=== PATIENT | male | born 1965 | race Hispanic/Latino ===

== ENCOUNTER → 2024-10-07 | Day surgery (SDC) | payer OTHER ==
[2024-10-03 12:25] LABS: BASOPHILS % 0.7 % (0.0-1.0); EOSINOPHILS % 2.4 % (0.0-6.0); LYMPHOCYTES % 6.3 % (18.0-39.1); MONOCYTES % 8.0 % (4.4-11.3); NEUTROPHILS % 81.5 % (38.7-80.0); RED CELL DISTRIBUTION WIDTH 15.4 % (11.7-14.4)
[2024-10-03 12:44] LABS: INR 2.12
[2024-10-03 12:52] LABS: EST GLOMERULAR FILTRATION RATE 107.0 ML/MIN (>=60)
[~2024-10-07] MED LIST: ENULOSE10 GM/15 M PO; ETOMIDATE 40 MG/ 20ML VIAL IV ONE; FAMOTIDINE 20 MG/2 ML VIAL IV ONE; FENTANYL CITRATE/PF 100MCG/2 ML INJ ONE; FUROSEMIDE40 MG PO; GLYCOPYRROLATE INJ 0.2 MG/ML VIAL ONE; HYOSCYAMINE SULFATE 0.5 MG/ML INJ ONE; LIDOCAINE HCL 2% LOCAL INJ 5 ML SDV VIAL INJ ONE; LISINOPRIL10 MG PO; METFORMIN HCL500 MG PO; PROPOFOL IV EMULSION 10 MG/ML 20 ML VIAL ONE; RELION NOV100 UNIT/1 SC
[2024-10-07] MEDS: DEXTROSE 5% 250ML 250 ML IV ONE (14:05)
[2024-10-07] MEDS: LACTATED RINGER'S 1,000 ML ONE (14:05)
[2024-10-07 16:15] VITALS: BP 102/78; PULSE 108; RESP 16; O2SAT 97
== END | disposition home or self-care (01) ==
LOC: OR 12:50
PROVIDERS: ATTEND Internal Medicine Gastroenterology
DX: R79.1 Abnormal coagulation profile (principal); K70.30 Alcoholic cirrhosis of liver without ascites; D64.9 Anemia, unspecified; I10 Essential (primary) hypertension; E11.9 Type 2 diabetes mellitus without complications; R05.9 Cough, unspecified; Z53.8 Procedure and treatment not carried out for other reasons; Z01.810 Encounter for preprocedural cardiovascular examination; Z01.812 Encounter for preprocedural laboratory examination; Z01.818 Encounter for other preprocedural examination; Z86.711 Personal history of pulmonary embolism; Z87.01 Personal history of pneumonia (recurrent)
CPT/HCPCS: 36415 ×2; 80053; 82948; 85025; 85610; 85730; 93005; J1308; J1980; J7121; 43239; J2003

== ENCOUNTER → 2024-10-10 | Outpatient (REF) | payer OTHER ==
[~2024-10-10] MED LIST changes: -ETOMIDATE 40 MG/ 20ML VIAL IV ONE; -FAMOTIDINE 20 MG/2 ML VIAL IV ONE; -FENTANYL CITRATE/PF 100MCG/2 ML INJ ONE; -GLYCOPYRROLATE INJ 0.2 MG/ML VIAL ONE; -HYOSCYAMINE SULFATE 0.5 MG/ML INJ ONE; -LIDOCAINE HCL 2% LOCAL INJ 5 ML SDV VIAL INJ ONE; -PROPOFOL IV EMULSION 10 MG/ML 20 ML VIAL ONE
== END ==
LOC: CT 10:44
PROVIDERS: ATTEND Internal Medicine
DX: R91.1 Solitary pulmonary nodule (principal)
CPT/HCPCS: 71250

== ENCOUNTER 2024-10-12 09:34 | Inpatient (IN) | payer OTHER ==
[~2024-10-12] VITALS: Ht 167.6 cm; Wt 69.4 kg
[~2024-10-12 09:34] MED LIST changes: -METFORMIN HCL500 MG PO; -PHYTONADIONE 10MG/ML INJ 20 MG in Sodium Chloride 0.9% 50ML 50 ML IV ONE
[2024-10-12] MEDS ORDERED: LACTATED RINGER'S 1,000 ML INJ ONE (10:00)
[2024-10-12 10:20] LABS: BASOPHILS % 0.8 % (0.0-1.0); EOSINOPHILS % 2.1 % (0.0-6.0); LYMPHOCYTES % 5.8 % (18.0-39.1); MONOCYTES % 8.2 % (4.4-11.3); NEUTROPHILS % 81.6 % (38.7-80.0); RED CELL DISTRIBUTION WIDTH 14.7 % (11.7-14.4)
[2024-10-12 10:52] LABS: EST GLOMERULAR FILTRATION RATE 101.0 ML/MIN (>=60)
[2024-10-12 13:08] VITALS: PULSE 68; RESP 18; O2SAT 98
[2024-10-12] MEDS ORDERED: BENZONATATE 100 MG CAP PO PRN (19:30)
[2024-10-12] MEDS: BENZONATATE 100 MG CAP PO PRN (19:31)
[2024-10-12 21:00] VITALS: PULSE 82; RESP 17; TEMP 98.7
[2024-10-12 22:24] VITALS: BP 124/85; PULSE 86; RESP 19; TEMP 97.6; O2SAT 100
[2024-10-12 22:25] VITALS: BP 124/85; PULSE 86; RESP 19; TEMP 97.6; O2SAT 100
[2024-10-12 22:50] VITALS: PULSE 88; RESP 14; O2SAT 94
[2024-10-12] MEDS ORDERED: METFORMIN HCL500 MG PO (23:21)
[2024-10-12 23:51] VITALS: BP 117/83; PULSE 87; RESP 18; TEMP 97.8; O2SAT 98
[2024-10-13 03:04] VITALS: BP 110/82; PULSE 81; RESP 18; TEMP 97.9; O2SAT 98
[2024-10-13 05:44] LABS: BASOPHILS % 0.9 % (0.0-1.0); EOSINOPHILS % 4.8 % (0.0-6.0); LYMPHOCYTES % 5.7 % (18.0-39.1); MONOCYTES % 9.2 % (4.4-11.3); NEUTROPHILS % 78.2 % (38.7-80.0); RED CELL DISTRIBUTION WIDTH 14.4 % (11.7-14.4)
[2024-10-13 05:58] LABS: INR 1.74
[2024-10-13 06:04] LABS: EST GLOMERULAR FILTRATION RATE 105.0 ML/MIN (>=60)
[2024-10-13 09:11] VITALS: BP 114/81; PULSE 84; RESP 18; TEMP 97.3; O2SAT 100
[2024-10-13] MEDS ORDERED: DEXTROSE 50% SYRINGE 50 ML IV PRN (13:45)
[2024-10-13 13:53] VITALS: PULSE 73; RESP 14; O2SAT 99
[2024-10-13] MEDS: INSULIN REGULAR, HUMAN 100 UNIT/1 ML SQ SCH (16:30)
[2024-10-13] MEDS: Morphine 2mg Syringe 2 MG/ML SYR IV PRN (17:43)
[2024-10-13 18:31] VITALS: BP 110/76; PULSE 94; RESP 20; TEMP 98.2; O2SAT 100
[2024-10-13 20:00] VITALS: BP_SYST 104; BP_SYST 139; BP_DIAS 85; BP_DIAS 89; PULSE 105; PULSE 56; RESP 17; RESP 20; TEMP 98.6; O2SAT 97; O2SAT 99
[2024-10-14] VITALS (7 sets, daily range): BP systolic 93–141; BP diastolic 67–94; PULSE 83–92; RESP 18–21; TEMP 97.6–98.3; O2SAT 98–100
[2024-10-14] MEDS: PHYTONADIONE 10 MG/ML AMP IV ONE (00:02)
[2024-10-14] MEDS: OCTREOTIDE ACETATE 0.1 MG/ML 100MCG AMP IV ONE (00:03)
[2024-10-14] MEDS: OCTREOTIDE ACETATE 500 MCG in SODIUM CHLORIDE 0.9% 250ML 249 ML IV SCH (01:56)
[2024-10-14 05:30] LABS: BASOPHILS % 1.3 % (0.0-1.0); EOSINOPHILS % 3.3 % (0.0-6.0); LYMPHOCYTES % 6.5 % (18.0-39.1); MONOCYTES % 10.2 % (4.4-11.3); NEUTROPHILS % 77.0 % (38.7-80.0); RED CELL DISTRIBUTION WIDTH 14.4 % (11.7-14.4)
[2024-10-14 05:53] LABS: EST GLOMERULAR FILTRATION RATE 107.0 ML/MIN (>=60)
[2024-10-14 08:19] LABS: ALPHA FETO-PROTEIN 256.0 ng/mL (0.0-8.4)
[2024-10-14] MEDS ORDERED: ALBUMIN 25% 12.5GM 50ML 100 ML IV ONE (08:59)
[2024-10-14] MEDS: METFORMIN HCL 500 MG TAB PO SCH (09:00)
[2024-10-14 10:48] LABS: BODY FLUID COLOR YELLOW; BODY FLUID TYPE PERITONEAL
[2024-10-14 10:49] LABS: BODY FLUID APPEARANCE CLEAR; WBC,BODY FLUID 87 cells/uL
[2024-10-14 13:21] LABS: LYMPHOCYTES,BODY FLUID 24 %; MONO/MACROPHG,BODY FLUID 49 %; NEUTROPHILS,BODY FLUID 19 %; OTHER CELLS,BODY FLUID 8 %; TOTAL CELLS COUNTED (DIFF) 100
[2024-10-14] MEDS ORDERED: IOPAMIDOL 370 MG/ML 100 ML INFUS..BTL INJ ONE (14:52)
[2024-10-14] MEDS: SODIUM CHLORIDE 1 GM TAB PO STA (22:20)
[2024-10-14] MEDS: SODIUM CHLORIDE 0.9% 1000ML 250 ML IV SCH (22:22)
[2024-10-15] VITALS (8 sets, daily range): BP systolic 99–117; BP diastolic 71–84; PULSE 72–82; RESP 16–19; TEMP 97.4–98.6; O2SAT 98–100
[2024-10-15 07:38] LABS: INR 1.93
[2024-10-16 00:19] VITALS: BP 106/76; PULSE 86; RESP 20; TEMP 97.5; O2SAT 98
[2024-10-16 04:12] VITALS: BP 92/70; PULSE 81; RESP 20; TEMP 97.8; O2SAT 99
[2024-10-16 07:31] VITALS: BP 99/72; PULSE 82; RESP 16; TEMP 97.6; O2SAT 100
[2024-10-16 08:30] VITALS: BP 99/72; PULSE 82; RESP 16; TEMP 97.6; O2SAT 100
[2024-10-16 08:55] LABS: BASOPHILS % 0.8 % (0.0-1.0); EOSINOPHILS % 4.7 % (0.0-6.0); LYMPHOCYTES % 6.9 % (18.0-39.1); MONOCYTES % 9.7 % (4.4-11.3); NEUTROPHILS % 76.2 % (38.7-80.0); RED CELL DISTRIBUTION WIDTH 15.0 % (11.7-14.4)
[2024-10-16 09:07] LABS: EST GLOMERULAR FILTRATION RATE 108.0 ML/MIN (>=60)
[2024-10-16] MEDS: SODIUM CHLORIDE 1 GM TAB PO STA (09:53)
[2024-10-16 11:28] VITALS: BP 90/72; PULSE 86; RESP 16; TEMP 98; O2SAT 100
== END 2024-10-16 12:13 | disposition home or self-care (01) | DRG 433 ==
LOC: ER 09:53 → ERHOLD 10:25 → MED/SURG 21:18
PROVIDERS: ADMIT Internal Medicine; ATTEND Internal Medicine
PROC: 0W9G3ZZ Drainage of Peritoneal Cavity, Percutaneous Approach (ICD-10-PCS; principal; 2024-10-14)
DX: K70.31 Alcoholic cirrhosis of liver with ascites (principal); C22.8 Malignant neoplasm of liver, primary, unspecified as to type; C78.00 Secondary malignant neoplasm of unspecified lung; D68.9 Coagulation defect, unspecified; K76.82 Hepatic encephalopathy; K72.10 Chronic hepatic failure without coma; E11.65 Type 2 diabetes mellitus with hyperglycemia; I95.89 Other hypotension; F10.10 Alcohol abuse, uncomplicated; R91.8 Other nonspecific abnormal finding of lung field; R53.81 Other malaise; E87.6 Hypokalemia; E88.09 Other disorders of plasma-protein metabolism, not elsewhere classified; Z79.4 Long term (current) use of insulin; Z79.84 Long term (current) use of oral hypoglycemic drugs
CPT/HCPCS: 36415; 49083; 71045; 74170; 74470; 76705; 80048; 80053; 82040; 82105; 82140; 82378; 82948; 83036; 83880; 84157; 84484; 85025; 85610; 87070; 87205; 88112; 88305; 89051; 93005; 94799; 99284; J2270; J2353; J2354; J3430; J7030; J7050; Q9967

== ENCOUNTER → 2024-10-12 | Day surgery (SDC) | payer OTHER ==
[2024-10-10 11:28] LABS: INR 1.74
[~2024-10-12] MED LIST changes: +PHYTONADIONE 10MG/ML INJ 20 MG in Sodium Chloride 0.9% 50ML 50 ML IV ONE
[2024-10-12 10:00] LABS: INR 1.92
== END | disposition home or self-care (01) ==
LOC: OR 08:23
PROVIDERS: ATTEND Internal Medicine Gastroenterology
DX: K70.30 Alcoholic cirrhosis of liver without ascites (principal); I34.0 Nonrheumatic mitral (valve) insufficiency; I07.1 Rheumatic tricuspid insufficiency; I95.9 Hypotension, unspecified; Z01.812 Encounter for preprocedural laboratory examination; Z53.8 Procedure and treatment not carried out for other reasons
CPT/HCPCS: 36415 ×2; 82948; 85610 ×2; 85730; 93306; J3430